=== PATIENT | male | born 1985 | race Caucasian/White ===

== ENCOUNTER 2018-09-09 09:33 | Emergency (ER) | payer MEDICAID ==
[~2018-09-09] VITALS: Ht 175.3 cm; Wt 101.2 kg
[2018-09-09 09:44] VITALS: BP 135/90
--- NOTE | 2018-09-09 10:05 | NUR ---
Ivory spencer in [facility] - 09/09/18 at [address] Ariza evaluating patient at bedside.
--- NOTE | 2018-09-09 10:13 | NUR ---
PT PRESENTS TO ED WITH C/O HEADACHE, SORE THROAT AND FEVER X3 DAYS. DENIES N/V/D. INFLAMMED TONSILS WITH WHITE PATCHES OBSERVED. ORAL TEMP 103.1; DR URBINA INFORMED.
[2018-09-09] MEDS ORDERED: NACL 0.9% 2,000 ML IV SCH (10:17)
[2018-09-09] MEDS ORDERED: ALBUTEROL SULFATE/IPRATROPIU 3 ML SOL IH ONE (10:20)
[2018-09-09] MEDS ORDERED: KETOROLAC 30 MG/ML VIAL IVP ONE (10:20)
[2018-09-09] MEDS ORDERED: CLINDAMYCIN 900 MG in DEXTROSE 5% 100 ML IV ONE (10:20)
[2018-09-09] MEDS ORDERED: DEXAMETHASONE 10 MG/ML VIAL IVP ONE (10:20)
[2018-09-09] MEDS ORDERED: ACETAMINOPHEN 650 MG SUPP RC ONE (10:20)
[2018-09-09] MEDS ORDERED: FAMOTIDINE 20 MG/2 ML VIAL IVP ONE (10:20)
--- NOTE | 2018-09-09 10:28 | NUR ---
model technician at bedside.
[2018-09-09] MEDS ORDERED: CLINDAMYCIN 900 MG/6 ML VIAL IV ONE (10:42)
--- NOTE | 2018-09-09 11:11 | NUR ---
Patient returned from CT scan. RN re-evaluating patient at bedside.
[2018-09-09 11:15] LABS: BASOPHILS # (AUTO) 0.1 K/uL (0.00-0.22); BASOPHILS % (AUTO) 0.7 % (0.0-2.0); EOSINOPHILS % (AUTO) 0.1 % (0.0-4.0); HEMATOCRIT 42.6 % (36-52); HEMOGLOBIN 14.6 g/dL (12.0-18.0); LYMPHOCYTES # (AUTO) 0.9 K/uL (2.0-11.5); LYMPHOCYTES % (AUTO) 10.7 % (20.5-51.1); MEAN CORPUSCULAR HEMOGLOBIN 29 pg (27-31); MEAN CORPUSCULAR HGB CONC 34 g/dL (33-37); MEAN CORPUSCULAR VOLUME 85.9 fL (80-94); MONOCYTES # (AUTO) 0.8 K/uL (0.8-1.0); NEUTROPHILS # (AUTO) 6.4 K/uL (1.8-7.7); NEUTROPHILS % (AUTO) 78.5 % (42.2-75.2); PLATELET COUNT (AUTO) 244 K/uL (140-450); RED BLOOD CELL COUNT(AUTO) 4.96 MIL/uL (4.20-6.10); RED CELL DISTRIBUTION WIDTH 13.2 % (11.6-13.7); WHITE BLOOD COUNT (AUTO) 8.1 K/uL (4.8-10.8)
[2018-09-09 11:31] LABS: APPEARANCE,URINE CLEAR (CLEAR); BILIRUBIN,URINE 2+ (NEGATIVE); BLOOD, URINE 2+ (NEGATIVE); COLOR,URINE ORANGE (YELLOW); LEUKOCYTE ESTERASE ,URINE NEGATIVE (NEGATIVE); NITRITE, URINE NEGATIVE (NEGATIVE); UGLUCOSE NEGATIVE (NEGATIVE)
[2018-09-09 11:32] LABS: BARBITURATE, URINE NEG. ng/ml (NEG <=200); BENZODIAZEPINE, URINE NEG. ng/mL (NEG <=200); CANNABINOID, URINE NEG. ng/mL (NEG <=50); COCAINE, URINE NEG. ng/mL (NEG <=300); OPIATE, URINE NEG. ng/mL (NEG <=2000); PHENCYCLIDINE SCREEN,URINE NEG. ng/mL (NEG <=25)
[2018-09-09 11:42] LABS: ALBUMIN 3.1 g/dL (3.4-5.0); ANION GAP 16.6 (8-16); CARBON DIOXIDE 23.7 mmol/L (21-32); CREATININE 1.1 mg/dL (0.7-1.3); POTASSIUM 3.3 mmol/L (3.5-5.1); TOTAL BILIRUBIN 1.6 mg/dL (0.0-1.0)
[2018-09-09 12:20] LABS: RBC,URINE 0-5 /HPF (0-5); WBC,URINE 0-5 /HPF (0-5)
[2018-09-09 12:21] LABS: COARSE GRANULAR CASTS,URINE 0-10 /LPF (None Seen)
--- NOTE | 2018-09-09 12:33 | NUR ---
ORAL TEMP 101.9; DR URBINA INFORMED. NO NEW ORDERS AT THIS TIME.
[2018-09-09 13:42] VITALS: BP 148/85
--- NOTE | 2018-09-09 13:42 | NUR ---
Patient discharged with v/s stable. Written and verbal after care instructions given and explained. Patient alert, oriented and verbalized understanding of instructions. Ambulatory with steady gait. All questions addressed prior to discharge. ID band removed. Patient advised to follow up with PMD. Rx of CLINDAMYCIN 300MG, PREDNISONE 20MG given. Patient educated on indication of medication including possible reaction and side effects. Opportunity to ask questions provided and answered.
== END 2018-09-09 13:42 | disposition home or self-care (01) ==
LOC: MED 09:33
DX: J03.90 Acute tonsillitis, unspecified (principal); R59.0 Localized enlarged lymph nodes
CPT/HCPCS: 36415; 36600; 70490; 71045; 80053; 80305; 81001; 82803; 83605; 85025; 87040; 87086; 94640; 96365; 96375; 99284; J1100; J1885; J3490; J7030; J7620; Q0092

== ENCOUNTER 2018-09-11 06:04 | Emergency (ER) | payer MEDICAID ==
[~2018-09-11] VITALS: Ht 172.7 cm; Wt 99.8 kg
[2018-09-11 06:08] VITALS: BP 124/79
--- NOTE | 2018-09-11 06:08 | NUR ---
pt ambulated to er bed 03
--- NOTE | 2018-09-11 06:08 | NUR ---
32 Y/O MALE PRESENTS TO ED WITH C/O REMY AND SORE THROAT X5 DAYS. PT SEEN AT [facility] FOR SORE THROAT. TREATED WITH CLINDAMYCIN AND PREDNISONE. PT STATES PAIN IS INTERMITTENT. REMY PAIN AND SORE THROAT /. PT TACHY AT 112, BP 11/73. FEBRILE 101.2. PT STATES TAKING TYLENOL AT HOME 1 HOUR AGO. NO RELIEF. ER MD AWARE. COOLING MEASURES IMPLEMENTED. AT BEDSIDE. CONTINUE TO MONITOR.
--- NOTE | 2018-09-11 06:10 | NUR ---
BILAT TONSILS LARGE AND APPEAR TO OBSTRUCT AIRWAY. PT STATES NO DIFFICULY MOVING AIR. STRIATED EXUDATE NOTED ON BILAT TONSILS. SEVERE 8/10 PAIN WITH SWALLOWING.
--- NOTE | 2018-09-11 06:20 | NUR ---
PT DESAT TO 91% @RA. HOB ELEVATED. PLACED ON O2NC @2LPM. PT STATES NO DIFFICULTY MOVING AIR. DR FLANAGAN NOTIFIED. CONTINUE TO MONITOR.
[2018-09-11] MEDS ORDERED: IBUPROFEN 600 MG TAB PO ONE (06:35)
[2018-09-11] MEDS ORDERED: predniSONE 20 MG TAB PO ONE (06:40)
[2018-09-11] MEDS ORDERED: PENICILLIN V POTASSIUM 250 MG TAB PO ONE (06:45)
[2018-09-11 07:09] LABS: BASOPHILS % (AUTO) 0.3 % (0.0-2.0); HEMATOCRIT 42.6 % (36-52); HEMOGLOBIN 14.5 g/dL (12.0-18.0); LYMPHOCYTES # (AUTO) 1.3 K/uL (2.0-11.5); LYMPHOCYTES % (AUTO) 9.4 % (20.5-51.1); MEAN CORPUSCULAR HEMOGLOBIN 29 pg (27-31); MEAN CORPUSCULAR HGB CONC 34 g/dL (33-37); MEAN CORPUSCULAR VOLUME 85.4 fL (80-94); MONOCYTES # (AUTO) 1.9 K/uL (0.8-1.0); MONOCYTES % (AUTO) 14.5 % (1.7-9.3); NEUTROPHILS # (AUTO) 10.1 K/uL (1.8-7.7); NEUTROPHILS % (AUTO) 75.8 % (42.2-75.2); PLATELET COUNT (AUTO) 281 K/uL (140-450); RED BLOOD CELL COUNT(AUTO) 4.99 MIL/uL (4.20-6.10); RED CELL DISTRIBUTION WIDTH 13.3 % (11.6-13.7); WHITE BLOOD COUNT (AUTO) 13.4 K/uL (4.8-10.8)
[2018-09-11] MEDS ORDERED: NACL 0.9% 1,000 ML IV ONE (07:10)
--- NOTE | 2018-09-11 07:15 | NUR ---
RECEIVED REPORT FROM MANAGER INFUSION RN. PT IN STABLE CONDITION. FAMILY MEMBER AT BEDSIDE.
[2018-09-11 07:29] LABS: ALBUMIN 3.2 g/dL (3.4-5.0); ANION GAP 17.1 (8-16); CARBON DIOXIDE 23.9 mmol/L (21-32); CREATININE 1.1 mg/dL (0.7-1.3); TOTAL BILIRUBIN 1.4 mg/dL (0.0-1.0)
[2018-09-11] MEDS ORDERED: POTASSIUM CHLORIDE 10 MEQ TABER PO ONE (08:00)
--- NOTE | 2018-09-11 08:02 | NUR ---
RELEASE AND TECHNICAL RECORDS CLERK HERE TO TAKE PATIENT FOR CT NECK W/ CONTRAST.
[2018-09-11] MEDS ORDERED: PENICILLIN G BENZATHINE L-A 1.2 MU/2 ML SYR IM ONE (09:30)
[2018-09-11] MEDS ORDERED: DEXAMETHASONE 10 MG/ML VIAL IM ONE (09:30)
[2018-09-11 10:20] VITALS: BP 108/72
--- NOTE | 2018-09-11 10:20 | NUR ---
Patient discharged with v/s stable. Written and verbal after care instructions given and explained. Patient verbalized understanding. Ambulatory with steady gait. All questions addressed prior to discharge. Advised to follow up with PMD. referral to ENT information and CT report given to pt. pt verbalized understanidng.
== END 2018-09-11 10:20 | disposition home or self-care (01) ==
LOC: MED 06:04
DX: J02.0 Streptococcal pharyngitis (principal)
CPT/HCPCS: 36415; 70491; 80053; 85025; 86308; 87081; 96372; 99284; J0561; J1100; J7030; J7512; Q9967